=== PATIENT | female | born 1985 | race African-American/Black ===

== ENCOUNTER 2020-12-25 19:14 | Inpatient (IN) | payer OTHER ==
[~2020-12-25] VITALS: Ht 162.6 cm; Wt 78.0 kg
--- NOTE | 2020-12-25 19:21 | NUR ---
BIB EMS FROM THE [facility] FOR N/V. PT STATES SHE IS A TYPE 1 DM AND HAS NOT TAKEN INSULIN X3-4 DAYS. BS 402 BY EMS. PT REFUSING ORAL TEMP AT THIS TIME. ALL OTHER MONITORS APPLIED. VSS. WARM BLANKETS PROVIDED. ERP DR. PONCE AT BEDSIDE FOR EVAL.
[2020-12-25] MEDS ORDERED: SODIUM CHLORIDE FLUSH 10ML SYR IVF ONE (19:30)
[2020-12-25] MEDS ORDERED: SODIUM CHLORIDE 0.9% 1,000ML IVBOLUS ONE ×3 (19:30→20:30)
[2020-12-25 20:13] LABS: MEAN CORPUSCULAR HEMOGLOBIN 30.1 pg (27.0-34.8); MEAN CORPUSCULAR HGB CONC 31.5 g/dL (32.4-35.8); MEAN PLATELET VOLUME 10.4 fL (7.4-10.4); PLATELET COUNT 403 x10^3/uL (130-400); RED BLOOD COUNT 4.93 x10^6/uL (3.82-5.3)
[2020-12-25 20:20] LABS: PH, VENOUS 6.878 pH (7.320-7.420)
[2020-12-25 20:20] LABS: ANION GAP 25 mmol/L (5-15); CALCIUM 8.9 mg/dL (8.5-10.1); CHLORIDE 99 mmol/L (98-107)
[2020-12-25 20:21] LABS: ALBUMIN 4.1 g/dL (3.4-5.0)
--- NOTE | 2020-12-25 20:21 | NUR ---
FAMILY AT BEDSIDE. AWARE OF POC WAITING ON LABS AND POC FOR [facility] ADMISSION TO CCU.
--- NOTE | 2020-12-25 20:28 | NUR ---
PHARMACY NOTIFIED OF NEED FOR INSULIN GTT.
[2020-12-25] MEDS ORDERED: SODIUM BICARB 8.4%, 50ML SYRINGE ONE (20:29)
[2020-12-25] MEDS ORDERED: SODIUM BICARB 8.4%, 50ML SYRINGE IVPush ONE (20:30)
[2020-12-25] MEDS ORDERED: REGULAR INSULIN 100 UNITS in SODIUM CHLORIDE 0.9% 99 ML IV PRN (20:30)
[2020-12-25 20:31] LABS: MICROSCOPIC INDICATED
[2020-12-25 20:45] LABS: BANDS%(MANUAL) 7 % (0-7); LYMPH#(MANUAL) 1.08 x10^3/uL (1-3.4); LYMPHS% (MANUAL) 4 % (22-44); METAMYELOCYTES# (MANUAL) 0.27 x10^3/uL (0-0); METAMYELOCYTES% (MANUAL) 1 % (0-1); MONOS#(MANUAL) 0.54 x10^3/uL (0.3-2.7); MONOS% (MANUAL) 2 % (2-9); MYELOCYTES# (MANUAL) 0.27 x10^3/uL (0-0); MYELOCYTES% (MANUAL) 1 % (0-0); SEG#(MANUAL) 23.04 x10^3/uL (1.8-6.8); SEGS% (MANUAL) 85 % (42-75)
[2020-12-25 20:46] LABS: <PLATELET ESTIMATE> INCREASED; <PLT MORPHOLOGY> NORMAL PLT MORPH; <RBC MORPHOLOGY> NORMAL
[2020-12-25 20:49] LABS: ACETONE, SERUM Large (80mg/dL) (Negative)
--- NOTE | 2020-12-25 21:00 | NUR ---
REPORT FROM LOKI
--- NOTE | 2020-12-25 21:06 | NUR ---
REPORT GIVEN TO SANDRO Mora RN.
--- NOTE | 2020-12-25 21:23 | NUR ---
FSBS 474 (JUST AFTER 3L OF NS COMPLETED & 10 MIN AT INSULIN DRIP STARTED) EMT TO BEDSIDE FOR ECG ERP TO BEDSIDE ASKED FOR ADDITIONAL FLUID ORDERS/ANTIEMETICS ORDERS
--- NOTE | 2020-12-25 21:29 | NUR ---
LAB CALLED TO DRAW CMP TO DETERMINE K LEVEL/NA LEVEL
[2020-12-25] MEDS ORDERED: ACETAMINOPHEN 325 MG TABLET PO PRN (21:30)
[2020-12-25] MEDS ORDERED: FAMOTIDINE 20 MG/2 ML IVPush SCH (21:30)
[2020-12-25] MEDS ORDERED: METOCLOPRAMIDE 5 MG/ML, 2ML IV PRN (21:30)
[2020-12-25] MEDS ORDERED: LABETALOL 5MG/ML, 20ML IVPush PRN (21:30)
[2020-12-25] MEDS ORDERED: REGULAR INSULIN 100 UNITS in SODIUM CHLORIDE 0.9% 99 ML IV SCH (21:30)
[2020-12-25] MEDS ORDERED: HYDROcodone/APAP 5/325 TABLET PO PRN (21:30)
[2020-12-25] MEDS ORDERED: SODIUM BICARB 8.4%, 50ML SYRINGE IVPB ONE (21:30)
[2020-12-25] MEDS ORDERED: DOCUSATE 100 MG CAPSULE PO PRN (21:30)
[2020-12-25] MEDS ORDERED: ONDANSETRON 2MG/ML, 2ML IV PRN (21:30)
[2020-12-25] MEDS ORDERED: METOCLOPRAMIDE 5 MG/ML, 2ML ONE (21:31)
[2020-12-25] MEDS ORDERED: FAMOTIDINE 20 MG/2 ML ONE (21:31)
[2020-12-25 21:53] LABS: ALBUMIN 3.7 g/dL (3.4-5.0); ANION GAP 23 mmol/L (5-15); CALCIUM 7.8 mg/dL (8.5-10.1); CHLORIDE 110 mmol/L (98-107)
[2020-12-25 22:03] LABS: ALANINE AMINOTRANSFERASE 18 U/L (12-78); ALKALINE PHOSPHATASE 178 U/L (45-117); BILIRUBIN,TOTAL 0.5 mg/dL (0.2-1.0); CREATININE 1.39 mg/dL (0.55-1.02); TOTAL PROTEIN 8.6 g/dL (6.4-8.2)
[2020-12-25 22:14] LABS: ACETONE, SERUM Large (80mg/dL) (Negative)
[2020-12-25] MEDS ORDERED: SODIUM CHLORIDE 0.9% 1,000 ML IV ONE (22:30)
[2020-12-25] MEDS: ENOXAPARIN 40 MG/0.4 ML SQ SCH (22:58)
[2020-12-25] MEDS ORDERED: POTASSIUM CHLORIDE 20 MEQ in LACTATED RINGERS 1,000 ML IV SCH (23:00)
[2020-12-25] MEDS ORDERED: LACTATED RINGERS 1,000 ML IV SCH (23:00)
[2020-12-25 23:15] VITALS: BP 118/85
[2020-12-25] MEDS ORDERED: LORazepam 0.5MG TABLET ONE (23:20)
[2020-12-25] MEDS ORDERED: LORazepam 0.5MG TABLET PO ONE (23:30)
[2020-12-25] MEDS ORDERED: INSU100V8 SQ (23:33)
[2020-12-26 01:38] LABS: ACETONE, SERUM Large (80mg/dL) (Negative)
[2020-12-26 01:39] LABS: ANION GAP 19 mmol/L (5-15); CALCIUM 8.1 mg/dL (8.5-10.1); CHLORIDE 112 mmol/L (98-107); CREATININE 1.37 mg/dL (0.55-1.02)
[2020-12-26] MEDS: DEXTROSE 10%, 1,000ML IVPB SCH ×2 (03:06→06:30)
[2020-12-26 05:15] LABS: ANION GAP 13 mmol/L (5-15); CALCIUM 8.6 mg/dL (8.5-10.1); CHLORIDE 118 mmol/L (98-107)
[2020-12-26 05:25] LABS: ACETONE, SERUM Large (80mg/dL) (Negative)
[2020-12-26 06:04] LABS: MEAN CORPUSCULAR HEMOGLOBIN 29.9 pg (27.0-34.8); MEAN PLATELET VOLUME 9.8 fL (7.4-10.4); PLATELET COUNT 339 x10^3/uL (130-400); RED CELL DISTRIBUTION WIDTH 14.7 % (9.6-15.2)
[2020-12-26 06:45] LABS: BANDS%(MANUAL) 3 % (0-7); LYMPH#(MANUAL) 1.79 x10^3/uL (1-3.4); LYMPHS% (MANUAL) 6 % (22-44); MONOS% (MANUAL) 3 % (2-9); SEG#(MANUAL) 26.31 x10^3/uL (1.8-6.8); SEGS% (MANUAL) 88 % (42-75)
[2020-12-26 06:46] LABS: <PLATELET ESTIMATE> ADEQUATE; <PLT MORPHOLOGY> NORMAL PLT MORPH; <RBC MORPHOLOGY> NORMAL
[2020-12-26] MEDS: D5%-0.45NACL+KCL 20MEQ 1,000 ML IV SCH ×2 (07:52→16:06)
[2020-12-26] MEDS ORDERED: REGULAR INSULIN 100 UNITS in SODIUM CHLORIDE 0.9% 99 ML IV PRN (09:00)
[2020-12-26 09:35] LABS: ANION GAP 8 mmol/L (5-15); CALCIUM 8.7 mg/dL (8.5-10.1); CHLORIDE 117 mmol/L (98-107); CREATININE 1.16 mg/dL (0.55-1.02)
[2020-12-26 13:19] LABS: CHLORIDE 115 mmol/L (98-107)
[2020-12-26 13:23] LABS: ANION GAP 8 mmol/L (5-15); CALCIUM 8.8 mg/dL (8.5-10.1); CREATININE 1.05 mg/dL (0.55-1.02)
[2020-12-26] MEDS ORDERED: POTASSIUM CHLORIDE 20 MEQ TAB.ER.PRT PO ONE (15:30)
[2020-12-26 17:55] LABS: ANION GAP 7 mmol/L (5-15); CALCIUM 8.6 mg/dL (8.5-10.1); CHLORIDE 114 mmol/L (98-107); CREATININE 0.85 mg/dL (0.55-1.02)
[2020-12-26 21:54] LABS: ANION GAP 7 mmol/L (5-15); CALCIUM 8.3 mg/dL (8.5-10.1); CHLORIDE 112 mmol/L (98-107); CREATININE 0.93 mg/dL (0.55-1.02)
[2020-12-26] MEDS: ENOXAPARIN 40 MG/0.4 ML SQ SCH (23:27)
[2020-12-27] MEDS: D5%-0.45NACL+KCL 20MEQ 1,000 ML IV SCH (00:28)
[2020-12-27 02:31] LABS: ANION GAP 5 mmol/L (5-15); CALCIUM 8.6 mg/dL (8.5-10.1); CHLORIDE 117 mmol/L (98-107); CREATININE 0.79 mg/dL (0.55-1.02)
[2020-12-27] MEDS ORDERED: POTASSIUM CHLORIDE 20 MEQ TAB.ER.PRT PO ONE (03:00)
[2020-12-27 05:59] LABS: BASOPHILS % (AUTO) 1 % (0-1); EOSINOPHILS % (AUTO) 0 % (1-7); LYMPHOCYTES % (AUTO) 26 % (22-44); MEAN CORPUSCULAR HEMOGLOBIN 30.3 pg (27.0-34.8); MEAN CORPUSCULAR HGB CONC 33.5 g/dL (32.4-35.8); MEAN PLATELET VOLUME 9.3 fL (7.4-10.4); MONOCYTES % (AUTO) 7 % (2-9); NEUTROPHILS % (AUTO) 66 % (42-75); PLATELET COUNT 255 x10^3/uL (130-400); RED BLOOD COUNT 3.96 x10^6/uL (3.82-5.3); RED CELL DISTRIBUTION WIDTH 14.8 % (9.6-15.2)
[2020-12-27 06:16] LABS: ANION GAP 6 mmol/L (5-15); CALCIUM 8.4 mg/dL (8.5-10.1); CHLORIDE 116 mmol/L (98-107); CREATININE 0.73 mg/dL (0.55-1.02)
[2020-12-27] MEDS: INSULIN GLARGINE 100 UNITS/ML, PEN SQ-INSULIN SCH ×2 (07:46→20:33)
[2020-12-27] MEDS: SODIUM CHLORIDE 0.9% 1,000 ML IV SCH ×2 (07:47→20:20)
[2020-12-27] MEDS: INSULIN LISPRO 100 UNITS/ML, PEN SQ-INSULIN SCH ×4 (07:47→20:33)
[2020-12-27 14:05] VITALS: BP 103/72
[2020-12-27 19:54] VITALS: BP 95/60
[2020-12-27] MEDS ORDERED: ENOXAPARIN 40 MG/0.4 ML ONE (23:01)
[2020-12-27] MEDS: ENOXAPARIN 40 MG/0.4 ML SQ SCH (23:02)
[2020-12-28 00:55] VITALS: BP 96/64
[2020-12-28] MEDS ORDERED: INSULIN GLARGINE 100 UNITS/ML, PEN SQ-INSULIN SCH (07:00)
[2020-12-28] MEDS: INSULIN LISPRO 100 UNITS/ML, PEN SQ-INSULIN SCH (07:48)
[2020-12-28 08:06] LABS: ANION GAP 6 mmol/L (5-15); CHLORIDE 111 mmol/L (98-107); CREATININE 0.63 mg/dL (0.55-1.02)
[2020-12-28 08:31] VITALS: BP 95/61
[2020-12-28] MEDS ORDERED: POTASSIUM CHLORIDE 20 MEQ TAB.ER.PRT PO ONE (09:00)
== END 2020-12-28 15:44 | disposition left against medical advice (07) | DRG 639 ==
LOC: ED 19:19 → EDIP 21:15 → UNDOADMIN 21:15 → ED 21:40 → 4NE 21:42 → EDIP 22:19 → CCU 22:19 → UNDODISIN 12-27 11:44 → ED 12-27 12:01 → 4NE 12-27 12:01 → ED 12-27 12:40 → 4NE 12-27 23:00 → ED 12-27 23:00 → SUATTDRO 12-28 04:04 → 4NE 12-28 14:19
PROVIDERS: ADMIT Internal Medicine; ATTEND Internal Medicine
DX: E10.10 Type 1 diabetes mellitus with ketoacidosis without coma (principal); D72.828 Other elevated white blood cell count; E87.5 Hyperkalemia
CPT/HCPCS: 36415; 71045; 80048; 80053; 81001; 82010; 82040; 82803; 82962; 83036; 83690; 83735; 84100; 84439; 84443; 85025; 87040; 87081; 93005; 96361; 96374; 99285; G0378; J1650; J1815; J3480; J2765; J7030; J7120